=== PATIENT | male | born 1995 | race Caucasian/White ===

== ENCOUNTER 2017-02-02 06:56 | Emergency (ER) | payer MEDICAID ==
[2017-02-02 07:19] VITALS: BP 130/71
[2017-02-02] MEDS ORDERED: KETOROLAC 60 MG/2 ML VIAL IM STA (07:27)
--- NOTE | 2017-02-02 07:31 | ED Physician Documentation ---
PD HPI TRUNK INJURY - Stated complaint Stated Complaint: RIB PX - Chief complaint Chief Complaint: General - History obtained from History obtained from: Patient, Family - History of Present Illness Location: Left chest Type of injury: Fall Timing - onset: Yesterday Timing - details: Abrupt onset Quality: Pain, Spasm Worsened by: Moving, Palpating Associated symtptoms: No: Swelling, Discoloration Where injury occured: [place] Similar symptoms before: Has not had sx before Recently seen: Not recently seen - Additional information Additional information: Patient is a 21 year old male with no significant past medical history who is presenting to the emergency department for left sided rib pain. patient states that he fell on it yesterday and the pain wasn't too bad but today the pain got progressively worse. Review of Systems Constitutional: denies: Fever, Chills Eyes: denies: Decreased vision, Photophobia Ears: denies: Ear pain, Drainage/discharge Nose: denies: Rhinorrhea / runny nose, Congestion Cardiac: reports: Chest pain / pressure. denies: Palpitations Respiratory: denies: Cough GI: denies: Abdominal Pain, Nausea, Vomiting : denies: Dysuria, Frequency Musculoskeletal: reports: Back pain Neurologic: denies: Generalized weakness, Focal weakness, Numbness Immunocompromised: denies: Immunocompromised PD PAST MEDICAL HISTORY - Past Medical History Past Medical History: No - Past Surgical History Past Surgical History: No - Present Medications Home Medications: Ambulatory Orders Medication Instructions Recorded Confirmed Ibuprofen 600 mg PO Q6H #20 tablet 02/02/17 - Allergies Allergies/Adverse Reactions: Allergies Allergy/AdvReac Type Severity Reaction Status Date / Time No Known Drug Allergies Allergy Verified 02/02/17 07:08 - Social History Does the pt smoke?: Yes Smoking Status: Current every day smoker Does the pt drink ETOH?: Yes Does the pt have substance abuse?: No - Immunizations Immunizations are current?: Yes PD ED PE NORMAL - Vitals Vital signs reviewed: Yes - General General: Alert and oriented X 3, No acute distress - HEENT HEENT: Atraumatic, PERRL - Neck Neck: Supple, no meningeal sign - Cardiac Cardiac: RRR, No murmur - Respiratory Respiratory: No respiratory distress, Clear bilaterally - Abdomen Abdomen: Soft, Non tender, Non distended - Derm Derm: Normal color, Warm and dry, No rash - Extremities Extremities: No deformity, Normal ROM s pain, No edema - Neuro Neuro: Alert and oriented X 3, No motor deficit, No sensory deficit, Normal speech - Psych Psych: Normal mood, Normal affect PD ED PE EXPANDED - Cardiac Cardiac: Chest wall TTP (tenderness on left lateral chest but no gross deformity , no ecchymosis) Results - Vitals Vitals: Vital Signs - 24 hr 02/02/17 07:04 Temperature 37.1 C Heart Rate 89 Respiratory 16 Rate Blood Pressure 130/71 O2 Saturation 96 Oxygen O2 Source Room air PD MEDICAL DECISION MAKING - ED course Complexity details: reviewed old records, reviewed results, re-evaluated patient , considered differential, d/w patient, d/w family ED course: Patient was seen and examined at bedside. patient's vital signs were within normal limits and there was no gross deformity. Patient was sent for imaging. When patient returned the results were reviewed. there was no acute fracture or dislocation. Patient was treated with toradol for pain. Patient required no further work up and was stable for discharge with outpatient follow up. Departure - Departure Disposition: 01 Home, Self Care Clinical Impression: Contusion of rib on left side Condition: Good Instructions: ED Contusion Chest Wall Follow-Up: primary,care provider [Other] - As Needed Prescriptions: Ibuprofen 600 mg PO Q6H #20 tablet Comments: Your diagnostics today were within normal limits. there was no acute fracture or long pathology. Bruising in there area can take a while to heal. You should take ibuprofen and tylenol as needed for pain. You should follow up with your pmd if your symptoms persist. You may return to the emergency department at any time for new, worsening or uncontrollable symptoms.
[2017-02-02] MEDS ORDERED: KETOROLAC 60 MG/2 ML VIAL ONE (07:45)
--- NOTE | 2017-02-02 07:46 | XRAY Preliminary Report ---
Exam: XR Chest 2 View PA/LAT IMPRESSION: 1. No acute disease in the chest. [facility] SITE ID: [id number]
--- NOTE | 2017-02-02 07:49 | XRAY Report ---
EXAM: CHEST RADIOGRAPHY EXAM DATE: 02/02/2017 07:34 AM. CLINICAL HISTORY: S/p fall. Severe left sided chest pain. COMPARISON: None. TECHNIQUE: 2 views. FINDINGS: Lungs/Pleura: No focal opacities evident. No pleural effusion. No pneumothorax. Normal volumes. Mediastinum: Heart and mediastinal contours are unremarkable. Other: No acute osseous abnormalities are identified. IMPRESSION: 1. No acute disease in the chest. [facility] Referring Provider Line: [phone] SITE ID: [id number]
== END 2017-02-02 08:08 | disposition home or self-care (01) ==
LOC: ED 06:56
DX: S20.212A Contusion of left front wall of thorax, initial encounter (principal); W01.0XXA Fall on same level from slipping, tripping and stumbling without subsequent striking against object, initial encounter; F17.200 Nicotine dependence, unspecified, uncomplicated
CPT/HCPCS: 71020; 96372; 99283

== ENCOUNTER 2018-07-10 18:12 | Emergency (ER) | payer SELFPAY ==
--- NOTE | 2018-07-10 19:09 | XRAY Report ---
Reason: fall Procedure Date: 07/10/2018 Accession Number: [id number] / [id number] Procedure: XR - Hand 3 View RT CPT Code: FULL RESULT: EXAM: RIGHT HAND RADIOGRAPHY EXAM DATE: 07/10/2018 06:42 PM. CLINICAL HISTORY: Fall. COMPARISON: None. TECHNIQUE: 3 views. FINDINGS: Bones: Normal. No fractures or bone lesions. Joints: Normal. No subluxations. Soft Tissues: There is dorsal soft tissue swelling of the hand. IMPRESSION: Soft tissue swelling without acute fracture. [facility]
[2018-07-10 19:37] VITALS: BP 131/68
== END 2018-07-10 20:38 | disposition left against medical advice (07) ==
LOC: ED 18:12
DX: R22.9 Localized swelling, mass and lump, unspecified (principal); Z53.21 Procedure and treatment not carried out due to patient leaving prior to being seen by health care provider

== ENCOUNTER 2018-07-13 14:48 | Emergency (ER) | payer SELFPAY ==
[2018-07-13 14:59] VITALS: BP 133/76
--- NOTE | 2018-07-13 14:59 | ED Physician Documentation ---
PD HPI LOWER EXT INJURY - Stated complaint Stated Complaint: RIGHT HAND PAIN - Chief complaint Chief Complaint: Ext Problem - History obtained from History obtained from: Patient - History of Present Illness PD HPI LOW EXT INJURY LOCATION: Right, Other (hand) Type of injury: Fall Timing - onset: How many days ago (2) Timing - duration: Days (2) Improved by: Rest Worsened by: Moving, Palpating Associated symptoms: Swelling. No: Weakness, Numbness Similar symptoms before: Has not had sx before Recently seen: Emergency Dept (came to ER 2 days ago and had xray out of triage order, but then had to leave before seen. Still having pain with use and palpation, so returned to get xray results.) Review of Systems Skin: denies: Abrasion (s), Laceration (s) Musculoskeletal: reports: Extremity pain Neurologic: denies: Focal weakness, Numbness PD PAST MEDICAL HISTORY - Past Medical History Cardiovascular: None Respiratory: None Neuro: None Endocrine/Autoimmune: None Musculoskeletal: None - Past Surgical History Past Surgical History: No - Present Medications Home Medications: Ambulatory Orders Medication Instructions Recorded Confirmed Ibuprofen 600 mg PO Q6H #20 tablet 02/02/17 07/10/18 - Allergies Allergies/Adverse Reactions: Allergies Allergy/AdvReac Type Severity Reaction Status Date / Time No Known Drug Allergies Allergy Verified 07/13/18 14:57 - Social History Does the pt smoke?: Yes Smoking Status: Current every day smoker Does the pt drink ETOH?: Yes Does the pt have substance abuse?: No - Immunizations Immunizations are current?: Yes PD ED PE NORMAL - Vitals Vital signs reviewed: Yes - General General: Alert and oriented X 3, No acute distress, Well developed/nourished - Derm Derm: Normal color, Warm and dry - Extremities Extremities: Other (right hand along 2nd MC area with some tenderness and swelling. No noted deformity. ) - Neuro Neuro: Alert and oriented X 3, No motor deficit, No sensory deficit Results - Vitals Vitals: Oxygen O2 Source Room air - Rads (name of study) right hand Radiology: Prelim report reviewed, EMP read contemporaneously (no fractures), See rad report PD MEDICAL DECISION MAKING - ED course Complexity details: reviewed results (he had xray taken coouple days ago, which did not have any fractures. ), considered differential, d/w patient Departure - Departure Disposition: Home, Self Care Clinical Impression: Fall from slip, trip, or stumble Qualifiers: Encounter type: initial encounter Qualified Code(s): W01.0XXA - Fall on same level from slipping, tripping and stumbling without subsequent striking against object, initial encounter Sprain of right hand Qualifiers: Encounter type: initial encounter Qualified Code(s): S63.91XA - Sprain of unspecified part of right wrist and hand, initial encounter Condition: Stable Record reviewed to determine appropriate education?: Yes Instructions: ED Sprain Hand Comments: Continue with your current treatments of the sprays, Jaskaran wrap, anti- inflammatories and use Tylenol added if needed for pain. I would expect this to improve over the next week or so. Your x-ray from Sunday did not show any fractures. Discharge Date/Time: 07/13/18 15:31
== END 2018-07-13 15:31 | disposition home or self-care (01) ==
LOC: ED 14:48
DX: S63.91XA Sprain of unspecified part of right wrist and hand, initial encounter (principal); W01.10XA Fall on same level from slipping, tripping and stumbling with subsequent striking against unspecified object, initial encounter; F17.200 Nicotine dependence, unspecified, uncomplicated
CPT/HCPCS: 99282; 99283

== ENCOUNTER 2020-05-16 08:50 | Emergency (ER) | payer SELFPAY ==
--- NOTE | 2020-05-16 09:07 | ED Physician Documentation ---
PD HPI OPHTHO - Stated complaint Stated Complaint: SCRATCH LT EYE - Chief complaint Chief Complaint: Heent - History obtained from History obtained from: Patient - History of Present Illness Timing - onset: Yesterday Timing - duration: Days (1) Timing - details: Abrupt onset, Still present Location: Left Quality / character: Aching Associated symptoms: Redness, Discharge, FB sensation. No: Decreased vision Contributing factors: Blunt trauma (he was poked in left eye by tree branch tip. Pain in eye. No bleeding. some blurring. Has feeling of FB. ALso this morning awoke with redness and purulent drainage medial corner.) Similar symptoms before: Has not had sx before Review of Systems Constitutional: denies: Fever, Chills Eyes: reports: Discharge, Irritation. denies: Decreased vision, Photophobia Nose: denies: Rhinorrhea / runny nose, Congestion Throat: denies: Sore throat Respiratory: denies: Cough PD PAST MEDICAL HISTORY - Past Medical History Past Medical History: Yes Cardiovascular: None Respiratory: None Neuro: None Endocrine/Autoimmune: None GI: None : None HEENT: None Psych: None Musculoskeletal: None Derm: None - Past Surgical History Past Surgical History: No - Present Medications Home Medications: Ambulatory Orders Medication Instructions Recorded Confirmed Ibuprofen 600 mg PO Q6H #20 tablet 02/02/17 05/16/20 Erythromycin Base [Erythromycin 1 applic OP QID #3.5 oint...g. 05/16/20 Ophthalmic Ointment] - Allergies Allergies/Adverse Reactions: Allergies Allergy/AdvReac Type Severity Reaction Status Date / Time No Known Drug Allergies Allergy Verified 05/16/20 08:59 - Social History Does the pt smoke?: Yes Smoking Status: Current every day smoker Does the pt drink ETOH?: Yes Does the pt have substance abuse?: Yes Substance Use and Type: Marijuana - Immunizations Immunizations are current?: Yes - POLST Patient has POLST: No PD ED PE NORMAL - Vitals Vital signs reviewed: Yes - General General: Alert and oriented X 3, No acute distress, Well developed/nourished PD ED PE EXPANDED - Eyes Eyes: PERRL, EOMI, No eyelid FB (everted), Exudate (mild purulent medially), Corneal abrasion, Fluorescein uptake (anterolateral), Anterior chambers clear. No: Corneal FB Results - Vitals Vitals: Vital Signs - 24 hr 05/16/20 05/16/20 09:00 09:35 Temperature 37.1 C 36.4 C L Heart Rate 104 H 98 Respiratory 18 16 Rate Blood Pressure 133/64 H 138/106 H O2 Saturation 100 100 Oxygen O2 Source Room air PD MEDICAL DECISION MAKING - ED course Complexity details: considered differential, d/w patient Departure - Departure Disposition: 01 Home, Self Care Clinical Impression: Corneal abrasion Qualifiers: Encounter type: initial encounter Laterality: left Qualified Code(s): S05.02XA - Injury of conjunctiva and corneal abrasion without foreign body, left eye, initial encounter Conjunctivitis, acute Qualifiers: Acute conjunctivitis type: bacterial Laterality: left Qualified Code(s): H10.32 - Unspecified acute conjunctivitis, left eye Condition: Stable Record reviewed to determine appropriate education?: Yes Instructions: ED Eye Injury Corneal Abrasion Follow-Up: Neymar Vásquez MD [Provider Admit Priv/Credential] - Prescriptions: Erythromycin Base [Erythromycin Ophthalmic Ointment] 1 applic OP QID #3.5 oint...g. Comments: Tylenol or ibuprofen as needed for pains. Use the erythromycin antibiotic ointment 4 times a day to reduce the apparent early infection. The abrasion itself should heal up over the next day or so. Recheck if not improved well over the next 1 to 2 days and return sooner if a lot worse. Use the antibiotic ointment for 3 to 5 days until the eye seems well cleared. Discharge Date/Time: 05/16/20 09:39
[2020-05-16] MEDS ORDERED: PROPARACAINE 0.5% OPHTH DROPS 15 ML LEFTEYE STA (09:11)
[2020-05-16] MEDS ORDERED: ERYTHROMYCIN OPHTH OINT 1 GM TUBE LEFTEYE STA (09:27)
[2020-05-16 09:35] VITALS: BP 138/106
== END 2020-05-16 09:39 | disposition home or self-care (01) ==
LOC: ED 08:50
DX: S05.02XA Injury of conjunctiva and corneal abrasion without foreign body, left eye, initial encounter (principal); W22.8XXA Striking against or struck by other objects, initial encounter; H10.32 Unspecified acute conjunctivitis, left eye; F17.200 Nicotine dependence, unspecified, uncomplicated
CPT/HCPCS: 99282; 99283; J3490